=== PATIENT | female | born 1950 | race Asian ===

== ENCOUNTER 2024-07-05 13:55 | Outpatient (RCR) | payer MEDICARE, OTHER, SELFPAY | END 2024-07-30 23:59 | disposition home or self-care (01) | LOC: SCTC 13:55 | PROVIDERS: PCP Family Medicine; Referring Provider Family Medicine; Visit Provider Internal Medicine Hematology & Oncology | DX: C50.311 Malignant neoplasm of lower-inner quadrant of right female breast (principal); Z17.0 Estrogen receptor positive status [ER+]; Z17.21 Progesterone receptor positive status; Z17.32 Human epidermal growth factor receptor 2 negative status; Z92.21 Personal history of antineoplastic chemotherapy; Z92.3 Personal history of irradiation; M89.9 Disorder of bone, unspecified; L98.8 Other specified disorders of the skin and subcutaneous tissue | CPT/HCPCS: 99212; G0463 ==

== ENCOUNTER → 2024-07-25 | Outpatient (CLI) | payer MEDICARE, OTHER, SELFPAY ==
[2024-07-25 09:59] LABS: Alanine Aminotransferase 26 U/L (10-49); Albumin, Serum 4.8 gm/dL (3.4-4.8); Albumin/Globulin Ratio 1.7 (1.2-2.2); Alkaline Phosphatase 78 U/L (46-116); Anion Gap 7 (7-16); Aspartate Amino Transferase 32 U/L (0-34); BUN/Creatinine Ratio 19 Ratio (12-20); Bilirubin,Total 0.9 mg/dL (0.3-1.2); Blood Urea Nitrogen 17 mg/dL (9-23); Calcium 10.4 mg/dL (8.3-10.6); Calcium (Corrected) 10.4 mg/dL (8.5-10.1); Carbon Dioxide 29.7 mMol/L (20.0-31.0); Cardiac Risk Estimate 2.4 RATIO (3.7-5.6); Chloride 98 mMol/L (98-107); Cholesterol 175 mg/dL (132-200); Creatinine (Component) 0.9 mg/dL (0.6-1.3); Globulin 2.8 gm/dL (2.3-3.5); Glucose 128 mg/dL (74-106); HDL Cholesterol 72 mg/dL (40-60); LDL Cholesterol,Calculated 84 mg/dL (0-130); Osmolality,Calculated 273 (275-295); Potassium 4.2 mMol/L (3.4-5.1); Sodium 135 mMol/L (136-145); Total Protein 7.6 gm/dL (5.7-8.2); Triglycerides 97 mg/dL (30-150); eGFR > 60 See Note
[2024-07-25 10:15] LABS: Glucose Estimated Average 160 mg/dL (80-131); Hemoglobin A1C 7.2 % Hgb (4.8-6.0)
== END | disposition home or self-care (01) ==
LOC: COPL 08:03
PROVIDERS: PCP Family Medicine; Referring Provider Family Medicine; Visit Provider Family Medicine
DX: E78.2 Mixed hyperlipidemia (principal); E11.9 Type 2 diabetes mellitus without complications; I10 Essential (primary) hypertension
CPT/HCPCS: 36415; 80053; 80061; 83036

== ENCOUNTER → 2024-08-02 | Outpatient (CLI) | payer MEDICARE, OTHER, SELFPAY ==
--- NOTE | 2024-08-02 12:30 | XR_ITS ---
Examination: Breast ultrasound, unilateral, left complete Date and time of exam: August 02, 2024 1232 hours INDICATIONS: Outer breast pain several months, personal history right breast cancer lumpectomy 2021, left breast sonogram February 01, 2024 1:00 oval mass lobular margins 7 x 6 x 8 mm Technique: Real-time bush scale ultrasonographic imaging performed left breast including all 4 quadrants as well as nipple retroareolar and axillary region. Findings: 1:00 oval mass partially indistinct margins 10 x 9 x 11 mm 10:00 oval mass circumscribed 7 x 2 x 7 mm IMPRESSION: BI-RADS Category 4: Suspicious for malignancy Suspicious nodule 1:00 position left breast Biopsy is needed to exclude breast carcinoma, this mass is amenable to ultrasound-guided breast biopsy for diagnosis
== END | disposition home or self-care (01) ==
PROVIDERS: PCP Family Medicine; Referring Provider Family Medicine; Visit Provider Family Medicine
DX: R92.342 Mammographic extreme density, left breast (principal); N63.21 Unspecified lump in the left breast, upper outer quadrant
CPT/HCPCS: 76641

== ENCOUNTER → 2024-09-13 | Outpatient (CLI) | payer MEDICARE, OTHER, SELFPAY ==
[2024-09-12 12:37] LABS: Basophils % (Auto) 1 % (0-2.5); Eosinophils # (Auto) 0.1 Thou/mm3 (0.0-0.5); Eosinophils % (Auto) 2 % (0-10); Hematocrit 45.2 % (36.0-46.0); Hemoglobin 14.5 g/dL (12.0-16.0); Immature Granulocytes % (Auto) 0 % (0-0); Immature Granulocytes Auto 0.02 Thou/mm3 (0.00-0.00); Lymphocytes % (Auto) 21 % (10-50); Mean Corpuscular HGB Conc 32.1 g/dl (31.0-37.0); Mean Corpuscular Hemoglobin 29.4 pg (25.0-35.0); Mean Corpuscular Volume 92 fL (80-100); Monocytes # (Auto) 0.4 Thou/mm3 (0.0-0.8); Monocytes % (Auto) 9 % (0-12); Neutrophils % (Auto) 66 % (37-80); Nucleated Red Blood Cell % 0 /100 WBC (0); Partial Thromboplastin Time 28.5 Seconds (22.0-36.0); Platelet Count 266 Thou/mm3 (140-440); Prothrombin Time 10.7 Seconds (9.0-12.2); Red Blood Count 4.93 Miln/mm3 (4.00-5.20); White Blood Count 4.5 Thou/mm3 (3.6-11.0)
--- NOTE | 2024-09-13 10:30 | XR_ITS ---
Examinations: Ultrasound-guided percutaneous breast biopsy, left breast 1:00 nodule Left breast sonography limited INDICATIONS: Left breast sonogram August 02, 2024 BI-RADS 4 suspicious mass 1:00 position left breast. Exam date and time: September 13, 2024 1037 hours. Informed consent provided. Technique: A timeout was completed verifying correct patient, procedure, site, positioning, and special equipment if applicable Informed consent provided. The patient was placed in a supine position for the breast biopsy. Sonographic images of the breast were performed for localization of the suspicious nodule The patient's breast was prepped and draped in sterile fashion. Maximum sterile barrier technique, hand hygiene, ultrasound sterile technique 1% lidocaine was used to anesthetize the skin and breast adjacent to the suspicious nodule. Utilizing ultrasonographic guidance, 8 core biopsies were obtained of the suspicious nodule utilizing an 18-gauge BioPince needle. The specimens appears satisfactory. US guided breast biopsy marker placement. Estimated blood loss 3 cc. The patient tolerated the procedure well and there were no complications. Impression: Successful ultrasound-guided percutaneous breast biopsy, left breast 1:00 nodule. Ultrasound guided breast biopsy marker placement.
== END | disposition home or self-care (01) ==
LOC: SDIM 09:41 → SIRX 10:31
PROVIDERS: Radiology Diagnostic Radiology; PCP Family Medicine; Referring Provider Internal Medicine Hematology & Oncology; Visit Provider Internal Medicine Hematology & Oncology
DX: D24.2 Benign neoplasm of left breast (principal); N60.32 Fibrosclerosis of left breast; C50.311 Malignant neoplasm of lower-inner quadrant of right female breast; Z01.812 Encounter for preprocedural laboratory examination
CPT/HCPCS: 19083; 36415; 85025; 85610; 85730; A4648

== ENCOUNTER 2024-09-22 13:19 | Outpatient (RCR) | payer MEDICARE, OTHER, SELFPAY ==
--- NOTE | 2024-10-02 19:14 | CTCFLWUP_ITS ---
Patient: DELMIS ANTHONY V. : 1950 Page 10 of 11 FOLLOW UP NOTE DATE OF SERVICE: 09/22/2024 NAME: DELMIS ANTHONY V. 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 S/p ultrasound-guided biopsy. S/p neoadjuvant chemotherapy with TCH regimen (11/05/2020?02/26/2021) S/p lumpectomy and sentinel lymph node biopsy (04/05/2021). Residual ypT1b disease. S/p adjuvant radiation therapy 05/05/2021?07/09/2021) Treated with adjuvant Kadcyla (05/13/2021?02/10/2022). Adjuvant anastrozole started on 08/06/2021. Currently on Citracal and alendronate. DATE OF DIAGNOSIS: STAGE/TNM: TREATMENT HISTORY: Care?Plan Start?Date Cycle Day Intent TCH?1 09/24/2020 1 21 Curative?(primary) KADCYLA?adjuvant 05/13/2021 1 21 Curative?(adjuvant) HISTORY OF PRESENT ILLNESS: Delmis Anthony is a 74-year-old ENG speaking female with following history. 1982: Patient had bilateral salpingo-oophorectomy and hysterectomy for what appears to be fibroids. Following the surgery patient was treated with estrogens as well as progestins. She continued these drugs still she was 60 years of age. 01/13/2020: Bilateral screening mammograms which were compared to previous mammograms done on July 08, 2017. 02/06/2020: Right breast diagnostic mammogram? 02/06/2020: Right breast ultrasound? 08/07/2020: Right breast diagnostic mammogram? 08/07/2020: Right breast ultrasound? 09/12/2020: Ultrasound-guided biopsy of the right breast 5 o'clock position nodule? 10/09/2020: Bilateral breast MRI with and without contrast? 10/10/2020: Echocardiogram?LVEF 60 to 65%. 10/23/2020: Right axillary ultrasound? 10/26/2020: PET CT scan? 11/05/2020?02/26/2021: The patient was treated with 6 cycles of TCH chemotherapy. For last 2 cycles she did not receive carboplatin due to reaction. 11/26/2020: Right breast ultrasound? 04/05/2021: Status post lumpectomy and sentinel lymph node biopsy of the right breast? 05/13/2021?02/10/2022: The patient completed 14 cycles of adjuvant Kadcyla. 05/15/2021?07/09/2021: Ms. Anthony completed 6300 cGy of radiation therapy to right breast. August 19, 2021: Patient started on adjuvant anastrozole. 11/28/2021: Right breast ultrasound performed due to pain in the right breast as well as right axilla 12/11/2021: Bone scan? 12/11/2021: CT scan of the chest without contrast 12/17/2021: Right breast diagnostic mammogram done 04/23/2022: MRI of the right shoulder post intra-articular contrast? 10/01/2022: Bilateral breast ultrasounds done 10/16/2023: Right breast mammogram showed interval 8 mm focal asymmetry in the posterior right breast, 6.7 cm from the nipple. 12/04/2023: Bilateral breast ultrasound? 12/11/2023:Right breast ultrasound?BI-RADS Category 2: Benign findings. 05/17/2024: MRI of the brain with and without contrast? 09/13/2024 eft breast ultrasound-guided biopsy shows benign tissue and fibrosis negative for cancer 06/10/2024 bone scan showed positive bone scan suspicious for osseous mets. Recommended AP pelvis thoracic lumbar and cervical plain films 06/30/[address] scan negative. 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 amlodipine - 5 mg As directed 2. anastrozole - 1 mg 1 tab Daily 3. B Complex 100 - 1 tab Daily 4. Citracal - 200 mg 1 tab Daily 5. clotrimazole - 2 % 5 mg Daily 6. Fosamax - 70 mg 1 tab Weekly 7. Jardiance - 10 mg tab Daily 8. metformin - 500 mg Twice a Day 9. simvastatin - 25 mg Daily 10. Synthroid - 0.025 mg Daily Medications Last Reconciled by Jo Ann Rosenthal MA on 09/22/2024 ALLERGIES: pravastatin; lisinopril; Ciprofloxacin; sulfamethoxazole- trimethoprim; morphine (bulk) REVIEW OF SYSTEMS: A complete 14-point review of systems was performed and is negative except as noted in interval history. PHYSICAL EXAMINATION: VITAL SIGNS: Temperature?98.9, B/P?114/76, Oxygen?Saturation?96% Weight?110?lbs PAIN: 0 - No pain ECOG Performance Status: 0 - Asymptomatic and fully active GENERAL APPEARANCE: Appears well, in no apparent distress, appropriately interactive. HEENT: Normocephalic, no temporal wasting, normal conjunctiva, no scleral icterus, normal hearing, lips without lesions, neck normal range of motion. CARDIOVASCULAR: Not assessed. PULMONARY: Normal respiratory effort, no respiratory distress or use of accessory muscles, speaking in full sentences, no tachypnea. EXTREMITIES: No pedal edema or cyanosis. SKIN: Normal skin appearance. NEUROLOGIC: Alert and oriented x4. PSHYCHIATRIC: Appropriate affect, mood normal, behavior normal, intact thought and speech. 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 S/p ultrasound-guided biopsy. S/p neoadjuvant chemotherapy with TCH regimen (11/05/2020?02/26/2021) S/p lumpectomy and sentinel lymph node biopsy (04/05/2021). Residual ypT1b disease. S/p adjuvant radiation therapy 05/05/2021?07/09/2021) Treated with adjuvant Kadcyla (05/13/2021?02/10/2022). Adjuvant anastrozole started on 08/06/2021 MRI of the brain showed a 10 mm enhancing lesion in the right parietal bone as documented above. Reviewed PET CT scan and bone scan with the patient. Both scans do not show any hypermetabolic activity as has been similar findings in the order PET CT scan Extensively counseled patient that she likely has a skin lesion on her hip and she need to see the raw juice weigher. Continue to take her calcium and vitamin D and alendronate Discussed pathology and is negative ORDERS: CBC,CMP,CA15-3 ,[place] RETURN TO CLINIC: 1 months BILLING AND COMPLIANCE: I reviewed external records from providers outside my specialty as summarized above. I spent a total of 50 minutes on this patient?s care on the day of their visit excluding time spent related to any billed procedures. This time includes time spent with the patient as well as time spent documenting in the medical record, reviewing patients records and tests, obtaining history, placing orders, communicating with other healthcare professionals, counseling the patient, family or caregiver, and/or care coordination for the diagnoses above. Electronically Signed by: {Object.Sanct_ID*PnP.NameFL@M}, {Object.Sanct_ID*PnP.Suffix@U} D: {Object.Sanct_Date} T: {Object.Sanct_Time} CC: PCP: Roberto Feliz Referring: Roberto Feliz This document was completed utilizing speech recognition software. Grammatical errors, random word insertions, pronoun errors, and incomplete sentences are an occasional consequence of this system due to software limitations, ambient noise, and hardware issues. Any formal questions or concerns about the content, text or information contained within the body of this dictation should be directly addressed to the provider for clarification.
== END 2024-09-30 23:59 | disposition home or self-care (01) ==
LOC: SCTC 13:19
PROVIDERS: PCP Family Medicine; Referring Provider Family Medicine; Visit Provider Internal Medicine Hematology & Oncology
DX: C50.311 Malignant neoplasm of lower-inner quadrant of right female breast (principal); Z17.0 Estrogen receptor positive status [ER+]; Z17.21 Progesterone receptor positive status; Z17.32 Human epidermal growth factor receptor 2 negative status; Z92.21 Personal history of antineoplastic chemotherapy; Z90.11 Acquired absence of right breast and nipple; Z92.3 Personal history of irradiation; Z79.811 Long term (current) use of aromatase inhibitors
CPT/HCPCS: 99212; G0463

== ENCOUNTER → 2024-10-13 | Outpatient (CLI) | payer MEDICARE, OTHER, SELFPAY ==
[2024-10-14 09:19] LABS: Misc Send Out* See Sep Rpt
== END | disposition home or self-care (01) ==
LOC: SCTO 09:30
PROVIDERS: PCP Family Medicine; Referring Provider Internal Medicine Hematology & Oncology; Visit Provider Internal Medicine Hematology & Oncology
DX: C50.311 Malignant neoplasm of lower-inner quadrant of right female breast (principal)
CPT/HCPCS: 36415

== ENCOUNTER → 2024-12-28 | Outpatient (CLI) | payer MEDICARE, OTHER, SELFPAY ==
[2024-12-28 09:14] LABS: Misc Send Out* See Sep Rpt
== END | disposition home or self-care (01) ==
LOC: SCTO 08:45
PROVIDERS: PCP Family Medicine; Referring Provider Internal Medicine Hematology & Oncology; Visit Provider Internal Medicine Hematology & Oncology
DX: C50.311 Malignant neoplasm of lower-inner quadrant of right female breast (principal)

== ENCOUNTER → 2025-01-20 | Outpatient (CLI) | payer MEDICARE, OTHER, SELFPAY ==
[2025-01-20 10:08] LABS: Collection Type, Urine Clean Catch; Squamous Epithelial Cell,Urine 0 /hpf (0-5)
[2025-01-20 10:34] LABS: Basophils % (Auto) 1 % (0-2.5); Eosinophils # (Auto) 0.1 Thou/mm3 (0.0-0.5); Eosinophils % (Auto) 3 % (0-10); Hematocrit 44.6 % (36.0-46.0); Hemoglobin 14.6 g/dL (12.0-16.0); Immature Granulocytes % (Auto) 0 % (0-0); Immature Granulocytes Auto 0.02 Thou/mm3 (0.00-0.00); Lymphocytes % (Auto) 22 % (10-50); Mean Corpuscular HGB Conc 32.7 g/dl (31.0-37.0); Mean Corpuscular Hemoglobin 29.8 pg (25.0-35.0); Mean Corpuscular Volume 91 fL (80-100); Monocytes # (Auto) 0.5 Thou/mm3 (0.0-0.8); Monocytes % (Auto) 11 % (0-12); Neutrophils # (Auto) 2.8 Thou/mm3 (1.8-7.7); Neutrophils % (Auto) 64 % (37-80); Nucleated Red Blood Cell % 0 /100 WBC (0); Platelet Count 197 Thou/mm3 (140-440); RDW Standard Deviation 41.3 fL (36.4-46.3); White Blood Count 4.5 Thou/mm3 (3.6-11.0)
[2025-01-20 10:45] LABS: Glucose Estimated Average 169 mg/dL (80-131); Hemoglobin A1C 7.5 % Hgb (4.8-6.0)
[2025-01-20 11:03] LABS: Bilirubin,Urine Negative (Negative); Blood,Urine Negative (Negative); Clarity,Urine Clear (Clear/Hazy); Color,Urine Colorless (Lt Yel-Yel); Glucose, Urine 4+ (Negative); Ketones,Urine Negative (Negative); Leukocyte Esterase,Urine Negative (Negative); Nitrite,Urine Negative (Negative); PH,Urine 6.5 (5.0-7.0); Protein,Urine Negative (Neg - Trace); RBC,Urine < 1 /hpf (0-3); Specific Gravity,Urine 1.008 (1.001-1.035); Urobilinogen,Urine Negative mg/dL (0.0-1.0); WBC,Urine < 1 /hpf (0-5)
[2025-01-20 11:07] LABS: Alanine Aminotransferase 27 U/L (10-49); Albumin, Serum 4.7 gm/dL (3.4-4.8); Albumin/Globulin Ratio 1.7 (1.2-2.2); Alkaline Phosphatase 74 U/L (46-116); Anion Gap 7 (7-16); Aspartate Amino Transferase 25 U/L (0-34); BUN/Creatinine Ratio 21 Ratio (12-20); Bilirubin,Total 0.7 mg/dL (0.3-1.2); Blood Urea Nitrogen 17 mg/dL (9-23); Calcium 9.2 mg/dL (8.3-10.6); Calcium (Corrected) 9.2 mg/dL (8.5-10.1); Carbon Dioxide 28.7 mMol/L (20.0-31.0); Cardiac Risk Estimate 2.5 RATIO (3.7-5.6); Chloride 100 mMol/L (98-107); Cholesterol 174 mg/dL (132-200); Creatinine (Component) 0.8 mg/dL (0.6-1.3); Globulin 2.8 gm/dL (2.3-3.5); Glucose 136 mg/dL (74-106); HDL Cholesterol 71 mg/dL (40-60); LDL Cholesterol,Calculated 73 mg/dL (0-130); Osmolality,Calculated 275 (275-295); Potassium 4.3 mMol/L (3.4-5.1); Sodium 136 mMol/L (136-145); Thyroid Stimulating Hormone 2.68 uIU/mL (0.55-4.78); Total Protein 7.5 gm/dL (5.7-8.2); Triglycerides 150 mg/dL (30-150); eGFR > 60 See Note
[2025-01-20 11:14] LABS: Creatinine MALB Rnd Ur 17 mg/dL (30-125); Microalbumin, Random Urine < 3 mg/L (0-300)
== END | disposition home or self-care (01) ==
LOC: COPL 09:37
PROVIDERS: PCP Family Medicine; Referring Provider Family Medicine; Visit Provider Family Medicine
DX: Z00.00 Encounter for general adult medical examination without abnormal findings (principal); E11.9 Type 2 diabetes mellitus without complications; E78.2 Mixed hyperlipidemia; I10 Essential (primary) hypertension
CPT/HCPCS: 36415; 80053; 80061; 81001; 82043; 82570; 83036; 84443; 85025

== ENCOUNTER → 2025-02-24 | Outpatient (CLI) | payer MEDICARE, OTHER, SELFPAY ==
--- NOTE | 2025-02-24 08:15 | XR_ITS ---
Examination: Screening digital mammography, bilateral Computer aided detection 3-D breast Tomosynthesis, bilateral Date and time of exam: February 24, 2025 0757 hours Compared to mammograms dating to December 16, 2021 Indication: Screening Technique: Nonmagnified MLO, CC views of the breasts to been obtained, reconstructed from 3-D Tomosynthesis images. R2 computer aided detection program utilized for evaluation of suspicious masses and/or abnormal calcifications. 3-D Tomosynthesis images obtained. Findings: The breasts are heterogeneously dense, which may obscure small masses Breast biopsy marker 12:00 position left breast Benign calcifications Impression: BI-RADS Category 0: Incomplete: Need additional imaging evaluation Given the 1:00 nodule indistinct margins 10 x 9 x 11 mm on left breast sonogram August 02, 2024, recommend follow-up bilateral breast sonography
== END | disposition home or self-care (01) ==
LOC: CDIM 07:48
PROVIDERS: PCP Family Medicine; Referring Provider Internal Medicine Hematology & Oncology; Visit Provider Internal Medicine Hematology & Oncology
DX: Z12.31 Encounter for screening mammogram for malignant neoplasm of breast (principal); N63.21 Unspecified lump in the left breast, upper outer quadrant; C50.311 Malignant neoplasm of lower-inner quadrant of right female breast
CPT/HCPCS: 77063; 77067

== ENCOUNTER → 2025-03-24 | Outpatient (CLI) | payer MEDICARE, OTHER, SELFPAY ==
[2025-03-24 08:32] LABS: Basophils # (Auto) 0.0 Thou/mm3 (0.0-0.2); Basophils % (Auto) 1 % (0-2.5); Eosinophils # (Auto) 0.1 Thou/mm3 (0.0-0.5); Eosinophils % (Auto) 3 % (0-10); Hematocrit 44.6 % (36.0-46.0); Hemoglobin 15.0 g/dL (12.0-16.0); Immature Granulocytes Auto 0.02 Thou/mm3 (0.00-0.00); Lymphocytes # (Auto) 1.1 Thou/mm3 (1.0-4.8); Lymphocytes % (Auto) 25 % (10-50); Mean Corpuscular HGB Conc 33.6 g/dl (31.0-37.0); Mean Corpuscular Hemoglobin 30.3 pg (25.0-35.0); Mean Corpuscular Volume 90 fL (80-100); Monocytes # (Auto) 0.4 Thou/mm3 (0.0-0.8); Monocytes % (Auto) 9 % (0-12); Neutrophils # (Auto) 2.7 Thou/mm3 (1.8-7.7); Neutrophils % (Auto) 62 % (37-80); Nucleated Red Blood Cell # 0.00 Thou/mm3 (0.00-0.00); Nucleated Red Blood Cell % 0 /100 WBC (0); Platelet Count 227 Thou/mm3 (140-440); RDW Standard Deviation 40.9 fL (36.4-46.3); Red Blood Count 4.95 Miln/mm3 (4.00-5.20); White Blood Count 4.4 Thou/mm3 (3.6-11.0)
[2025-03-24 09:11] LABS: Alanine Aminotransferase 21 U/L (10-49); Albumin, Serum 4.6 gm/dL (3.4-4.8); Albumin/Globulin Ratio 1.7 (1.2-2.2); Alkaline Phosphatase 71 U/L (46-116); Anion Gap 10 (7-16); Aspartate Amino Transferase 26 U/L (0-34); BUN/Creatinine Ratio 18 Ratio (12-20); Bilirubin,Total 0.6 mg/dL (0.3-1.2); Blood Urea Nitrogen 16 mg/dL (9-23); Calcium 9.4 mg/dL (8.3-10.6); Calcium (Corrected) 9.4 mg/dL (8.5-10.1); Carbon Dioxide 29.4 mMol/L (20.0-31.0); Chloride 101 mMol/L (98-107); Creatinine (Component) 0.9 mg/dL (0.6-1.3); Globulin 2.7 gm/dL (2.3-3.5); Glucose 146 mg/dL (74-106); Osmolality,Calculated 283 (275-295); Potassium 4.2 mMol/L (3.4-5.1); Sodium 140 mMol/L (136-145); Total Protein 7.3 gm/dL (5.7-8.2); eGFR > 60 See Note
== END | disposition home or self-care (01) ==
LOC: COPL 07:51
PROVIDERS: PCP Family Medicine; Referring Provider Internal Medicine Hematology & Oncology; Visit Provider Internal Medicine Hematology & Oncology
DX: C50.311 Malignant neoplasm of lower-inner quadrant of right female breast (principal)
CPT/HCPCS: 36415; 80053; 85025

== ENCOUNTER 2025-03-29 13:50 | Outpatient (RCR) | payer MEDICARE, OTHER, SELFPAY ==
--- NOTE | 2025-04-09 22:33 | CTCFLWUP_ITS ---
Patient: DELMIS WHITTAKER V. : 1950 Page 11 of 12 FOLLOW UP NOTE DATE OF SERVICE: 03/29/2025 NAME: DELMIS WHITTAKER V. 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 S/p ultrasound-guided biopsy. S/p neoadjuvant chemotherapy with TCH regimen (11/05/2020?02/26/2021) S/p lumpectomy and sentinel lymph node biopsy (04/05/2021). Residual ypT1b disease. S/p adjuvant radiation therapy 05/05/2021?07/09/2021) Treated with adjuvant Kadcyla (05/13/2021?02/10/2022). Adjuvant anastrozole started on 08/06/2021. Currently on Citracal and alendronate. DATE OF DIAGNOSIS: 09/12/2020 STAGE/TNM: Stage IIa ER positive CO positive HER2 positive breast cancer TREATMENT HISTORY: Care?Plan Start?Date Cycle Day Intent TCH?1 09/24/2020 1 21 Curative?(primary) KADCYLA?adjuvant 05/13/2021 1 21 Curative?(adjuvant) HISTORY OF PRESENT ILLNESS: Delmis Whittaker is a 75-year-old ENG speaking female with following history. 1982: Patient had bilateral salpingo-oophorectomy and hysterectomy for what appears to be fibroids. Following the surgery patient was treated with estrogens as well as progestins. She continued these drugs still she was 60 years of age. 01/13/2020: Bilateral screening mammograms which were compared to previous mammograms done on July 08, 2017. 02/06/2020: Right breast diagnostic mammogram? 02/06/2020: Right breast ultrasound? 08/07/2020: Right breast diagnostic mammogram? 08/07/2020: Right breast ultrasound? 09/12/2020: Ultrasound-guided biopsy of the right breast 5 o'clock position nodule? 10/09/2020: Bilateral breast MRI with and without contrast? 10/10/2020: Echocardiogram?LVEF 60 to 65%. 10/23/2020: Right axillary ultrasound? 10/26/2020: PET CT scan? 11/05/2020?02/26/2021: The patient was treated with 6 cycles of TCH chemotherapy. For last 2 cycles she did not receive carboplatin due to reaction. 11/26/2020: Right breast ultrasound? 04/05/2021: Status post lumpectomy and sentinel lymph node biopsy of the right breast? 05/13/2021?02/10/2022: The patient completed 14 cycles of adjuvant Kadcyla. 05/15/2021?07/09/2021: Ms. Whittaker completed 6300 cGy of radiation therapy to right breast. August 19, 2021: Patient started on adjuvant anastrozole. 11/28/2021: Right breast ultrasound performed due to pain in the right breast as well as right axilla 12/11/2021: Bone scan? 12/11/2021: CT scan of the chest without contrast 12/17/2021: Right breast diagnostic mammogram done 04/23/2022: MRI of the right shoulder post intra-articular contrast? 10/01/2022: Bilateral breast ultrasounds done 10/16/2023: Right breast mammogram showed interval 8 mm focal asymmetry in the posterior right breast, 6.7 cm from the nipple. 12/04/2023: Bilateral breast ultrasound? 12/11/2023:Right breast ultrasound?BI-RADS Category 2: Benign findings. 05/17/2024: MRI of the brain with and without contrast? 09/13/2024 eft breast ultrasound-guided biopsy shows benign tissue and fibrosis negative for cancer 06/10/2024 bone scan showed positive bone scan suspicious for osseous mets. Recommended AP pelvis thoracic lumbar and cervical plain films 06/30/[address] scan negative. 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 amlodipine - 2 mg As directed 2. anastrozole - 1 mg 1 tab Daily 3. B Complex 100 - 1 tab Daily 4. Citracal - 200 mg 1 tab Daily 5. clotrimazole - 2 % 5 mg Daily 6. Fosamax - 70 mg 1 tab Weekly 7. Jardiance - 10 mg tab Daily 8. metformin - 500 mg Twice a Day 9. simvastatin - 25 mg Daily 10. Synthroid - 0.025 mg Daily Medications Last Reconciled by Jo Ann Brand MD on 03/29/2025 ALLERGIES: pravastatin; lisinopril; Ciprofloxacin; sulfamethoxazole- trimethoprim; morphine (bulk) REVIEW OF SYSTEMS: A complete 14-point review of systems was performed and is negative except as noted in interval history. PHYSICAL EXAMINATION: VITAL SIGNS: Temperature?97.4, B/P?136/78, Oxygen?Saturation?94% Weight?109?lbs PAIN: 0 - No pain ECOG Performance Status: 0 - Asymptomatic and fully active GENERAL APPEARANCE: Appears well, in no apparent distress, appropriately interactive. HEENT: Normocephalic, no temporal wasting, normal conjunctiva, no scleral icterus, normal hearing, lips without lesions, neck normal range of motion. CARDIOVASCULAR: Not assessed. PULMONARY: Normal respiratory effort, no respiratory distress or use of accessory muscles, speaking in full sentences, no tachypnea. EXTREMITIES: No pedal edema or cyanosis. SKIN: Normal skin appearance. NEUROLOGIC: Alert and oriented x4. PSHYCHIATRIC: Appropriate affect, mood normal, behavior normal, intact thought and speech. LABORATORY DATA: I have personally reviewed and interpreted each of the patient?s relevant lab tests, abnormal findings are below: Date 01/20/25 03/24/25 ??WHITE?BLOOD?COUNT?(Thou/mm3) 4.5 4.4 ??RED?BLOOD?COUNT?(Miln/mm3) 4.90 4.95 ??HEMOGLOBIN?(gm/dl) 14.6 15.0 ??HEMATOCRIT?(%) 44.6 44.6 ??PLATELET?COUNT?(Thou/mm3) 197 227 ??NEUTROPHILS?%,?AUTO?(%) 64 62 ??LYMPH?%,?AUTO?(%) 22 25 ??NEUTROPHILS,?AUTO?(Thou/mm3) 2.8 2.7 ??GLUCOSE,RANDOM?(mg/dL) 136?H 146?H ??BLOOD?UREA?NITROGEN?(mg/dL) 17 16 ??CREATININE?(mg/dL) 0.80 0.90 ??SODIUM?(mmol/L) 136 140 ??POTASSIUM?(mmol/L) 4.3 4.2 ??CHLORIDE?(mmol/L) 100 101 ??CrCl?(CandG)?(ml/min) 48.60 42.54 ??AST/SGOT?(Unit/L) 25 26 ??ALT/SGPT?(Unit/L) 27 21 ??ALKALINE?PHOSPHATASE?(Unit/L) 74 71 ??BILIRUBIN,?TOTAL?(mg/dL) 0.7 0.6 ??PROTEIN?TOTAL?(gm/dl) 7.5 7.3 ??ALBUMIN,?SERUM?(gm/dl) 4.7 4.6 ??GLOBULIN?(gm/dl) 2.8 2.7 ??ALBUMIN/GLOBULIN?RATIO 1.7 1.7 ??CALCIUM,?SERUM?(mg/dL) 9.2 9.4 ??CALCIUM?SERUM?(CORRECTED)?(mg/dL) 9.2 9.4 ASSESSMENT/PLAN: stage IIa (T1, N1, M0) ER positive, CO positive, HER-2/gilbert overexpressed 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 S/p ultrasound-guided biopsy. S/p neoadjuvant chemotherapy with TCH regimen (11/05/2020?02/26/2021) S/p lumpectomy and sentinel lymph node biopsy (04/05/2021). Residual ypT1b disease. S/p adjuvant radiation therapy 05/05/2021?07/09/2021) Treated with adjuvant Kadcyla (05/13/2021?02/10/2022). Adjuvant anastrozole started on 08/06/2021 MRI of the brain showed a 10 mm enhancing lesion in the right parietal bone as documented above. Reviewed PET CT scan and bone scan with the patient. Both scans do not show any hypermetabolic activity as has been similar findings in the order PET CT scan 09/13/2024 ultrasound followed by biopsy was done of the left breast and was negative Neli testing negative on 10/21/2024 Neli negative on 12/29/2024 03/31/2025 ultrasound of the breast showed bilateral lesions and recommendation was to obtain biopsy Patient very reluctant to do biopsy again at [facility] as last biopsy was negative Will refer to Dr. Meraz for evaluation Advised to continue taking her anastrozole ORDERS: Order # Description [id number] Bilateral + Breast Ultrasound [id number] Left + Breast Ultrasound [id number] Follow Up 3 Months Patient to come back and see me earliest if found to have cancer on the biopsy with Dr. Serrato RETURN TO CLINIC: I reviewed the diagnosis, prognosis, and recommended treatment/procedure options with the patient (and/or their legal operations representative), including the potential benefits, risks, side effects and alternative therapies. We also discussed the option of no treatment and the possibility of clinical trial participation, if applicable. All questions were addressed, and they demonstrated understanding. They provided informed consent to proceed with the proposed plan of care. BILLING AND COMPLIANCE: I reviewed external records from providers outside my specialty as summarized above. I spent a total of 50 minutes on this patient?s care on the day of their visit excluding time spent related to any billed procedures. This time includes time spent with the patient as well as time spent documenting in the medical record, reviewing patients records and tests, obtaining history, placing orders, communicating with other healthcare professionals, counseling the patient, family or caregiver, and/or care coordination for the diagnoses above. Electronically Signed by: {Object.Sanct_ID*[email or web address]@M}, {Object.Sanct_ID*[email or web address]@U} D: {Object.Sanct_Date} T: {Object.Sanct_Time} CC: PCP: Roberto Feliz Referring: Roberto Feliz This document was completed utilizing speech recognition software. Grammatical errors, random word insertions, pronoun errors, and incomplete sentences are an occasional consequence of this system due to software limitations, ambient noise, and hardware issues. Any formal questions or concerns about the content, text or information contained within the body of this dictation should be directly addressed to the provider for clarification.
== END 2025-03-30 23:59 | disposition home or self-care (01) ==
LOC: SCTC 13:50
PROVIDERS: PCP Family Medicine; Referring Provider Family Medicine; Visit Provider Internal Medicine Hematology & Oncology
DX: C50.311 Malignant neoplasm of lower-inner quadrant of right female breast (principal); Z17.0 Estrogen receptor positive status [ER+]; Z17.21 Progesterone receptor positive status; Z17.32 Human epidermal growth factor receptor 2 negative status; Z90.11 Acquired absence of right breast and nipple; Z92.3 Personal history of irradiation; Z92.21 Personal history of antineoplastic chemotherapy; Z79.811 Long term (current) use of aromatase inhibitors; N64.89 Other specified disorders of breast
CPT/HCPCS: 99212; G0463

== ENCOUNTER → 2025-03-31 | Outpatient (CLI) | payer MEDICARE, OTHER, SELFPAY ==
--- NOTE | 2025-03-31 14:00 | XR_ITS ---
Examination: Breast ultrasound complete, bilateral Date and time of exam: March 31, 2025 1350 hours INDICATIONS: 1:00 nodule 10 x 9 x 11 mm on left breast sonogram August 02, 2024, personal history right breast cancer with lumpectomy 2020 Technique: Real-time grayscale ultrasonographic imaging bilateral breasts, including all 4 quadrants as well as nipple retroareolar and axillary regions. Findings: Sonographic images right breast 3:00 nodule lobular margins 4 x 4 millimeter 3:00 nodule lobular margins 5 x 4 mm 5:00 likely scar formation 11 x 10 mm 7:00 nodule circumscribed 5 x 5 mm 11:00 nodule lobular margins 5 x 3 mm Sonographic images left breast 1:00 nodule indistinct margins, 11 x 8 x 8 mm 10:00 nodule circumscribed 6 x 7 mm IMPRESSION: BI-RADS Category 4: Suspicious for malignancy Recommend repeat biopsy of the suspicious nodule 1:00 position left breast, measuring 11 x 8 x 8 mm currently with indistinct margins Also continued 6 month follow-up right breast sonography strongly recommended to document stability of multiple solid nodules described above
== END | disposition home or self-care (01) ==
PROVIDERS: PCP Family Medicine; Referring Provider Internal Medicine Hematology & Oncology; Visit Provider Internal Medicine Hematology & Oncology
DX: N63.21 Unspecified lump in the left breast, upper outer quadrant (principal); N63.11 Unspecified lump in the right breast, upper outer quadrant; N63.22 Unspecified lump in the left breast, upper inner quadrant; N63.15 Unspecified lump in the right breast, overlapping quadrants; N63.13 Unspecified lump in the right breast, lower outer quadrant; C50.311 Malignant neoplasm of lower-inner quadrant of right female breast
CPT/HCPCS: 76641

== ENCOUNTER → 2025-06-23 | Outpatient (CLI) | payer MEDICARE, OTHER, SELFPAY ==
[2025-06-23 08:56] LABS: Glucose Estimated Average 169 mg/dL (80-131); Hemoglobin A1C 7.5 % Hgb (4.8-6.0)
[2025-06-23 09:15] LABS: Alanine Aminotransferase 30 U/L (10-49); Albumin, Serum 4.9 gm/dL (3.4-4.8); Albumin/Globulin Ratio 2.2 (1.2-2.2); Alkaline Phosphatase 66 U/L (46-116); Anion Gap 10 (7-16); Aspartate Amino Transferase 32 U/L (0-34); BUN/Creatinine Ratio 16 Ratio (12-20); Bilirubin,Total 1.0 mg/dL (0.3-1.2); Blood Urea Nitrogen 13 mg/dL (9-23); Calcium 9.7 mg/dL (8.3-10.6); Calcium (Corrected) 9.7 mg/dL (8.5-10.1); Carbon Dioxide 30.3 mMol/L (20.0-31.0); Cardiac Risk Estimate 3.0 RATIO (3.7-5.6); Chloride 102 mMol/L (98-107); Cholesterol 223 mg/dL (132-200); Creatinine (Component) 0.8 mg/dL (0.6-1.3); Globulin 2.2 gm/dL (2.3-3.5); Glucose 140 mg/dL (74-106); HDL Cholesterol 74 mg/dL (40-60); LDL Cholesterol,Calculated 129 mg/dL (0-130); Osmolality,Calculated 285 (275-295); Potassium 4.0 mMol/L (3.4-5.1); Sodium 142 mMol/L (136-145); Thyroid Stimulating Hormone 3.28 uIU/mL (0.55-4.78); Total Protein 7.1 gm/dL (5.7-8.2); Triglycerides 102 mg/dL (30-150); eGFR > 60 See Note
== END | disposition home or self-care (01) ==
LOC: COPL 07:37
PROVIDERS: PCP Family Medicine; Referring Provider Family Medicine; Visit Provider Family Medicine
DX: E11.69 Type 2 diabetes mellitus with other specified complication (principal); E78.2 Mixed hyperlipidemia; E03.9 Hypothyroidism, unspecified; I10 Essential (primary) hypertension
CPT/HCPCS: 36415; 80053; 80061; 83036; 84443

== ENCOUNTER 2025-06-29 13:08 | Outpatient (RCR) | payer MEDICARE, OTHER, SELFPAY ==
--- NOTE | 2025-07-17 06:27 | CTCFLWUP_ITS ---
Patient: DELMIS WHITTAKER V. : 1950 Page 10 of 12 FOLLOW UP NOTE DATE OF SERVICE: 06/29/2025 NAME: DELMIS WHITTAKER V. ACCOUNT: [id number] : 1950 AGE: 75 INTERVAL HISTORY: Patient is here for follow-up on the biopsy results. Patient was recommended to do the biopsy which was completed by breast surgeon Dr. Serrato antibodies fortunately negative. Will continue on anastrozole and routine follow-up. ONCOLOGY HISTORY:?[facility] Hx? 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 S/p ultrasound-guided biopsy. S/p neoadjuvant chemotherapy with TCH regimen (11/05/2020?02/26/2021) S/p lumpectomy and sentinel lymph node biopsy (04/05/2021). Residual ypT1b disease. S/p adjuvant radiation therapy 05/05/2021?07/09/2021) Treated with adjuvant Kadcyla (05/13/2021?02/10/2022). Adjuvant anastrozole started on 08/06/2021. Currently on Citracal and alendronate. DATE OF DIAGNOSIS: 09/12/2020 STAGE/TNM: Stage IIa ER positive OH positive HER2 positive breast cancer TREATMENT HISTORY: Care?Plan Start?Date Cycle Day Intent TCH?1 09/24/2020 1 21 Curative?(primary) KADCYLA?adjuvant 05/13/2021 1 21 Curative?(adjuvant) HISTORY OF PRESENT ILLNESS: Delmis Whittaker is a 75-year-old ENG speaking female with following history. 1982: Patient had bilateral salpingo-oophorectomy and hysterectomy for what appears to be fibroids. Following the surgery patient was treated with estrogens as well as progestins. She continued these drugs still she was 60 years of age. 01/13/2020: Bilateral screening mammograms which were compared to previous mammograms done on July 08, 2017. 02/06/2020: Right breast diagnostic mammogram? 02/06/2020: Right breast ultrasound? 08/07/2020: Right breast diagnostic mammogram? 08/07/2020: Right breast ultrasound? 09/12/2020: Ultrasound-guided biopsy of the right breast 5 o'clock position nodule? 10/09/2020: Bilateral breast MRI with and without contrast? 10/10/2020: Echocardiogram?LVEF 60 to 65%. 10/23/2020: Right axillary ultrasound? 10/26/2020: PET CT scan? 11/05/2020?02/26/2021: The patient was treated with 6 cycles of TCH chemotherapy. For last 2 cycles she did not receive carboplatin due to reaction. 11/26/2020: Right breast ultrasound? 04/05/2021: Status post lumpectomy and sentinel lymph node biopsy of the right breast? 05/13/2021?02/10/2022: The patient completed 14 cycles of adjuvant Kadcyla. 05/15/2021?07/09/2021: Ms. Whittaker completed 6300 cGy of radiation therapy to right breast. August 19, 2021: Patient started on adjuvant anastrozole. 11/28/2021: Right breast ultrasound performed due to pain in the right breast as well as right axilla 12/11/2021: Bone scan? 12/11/2021: CT scan of the chest without contrast 12/17/2021: Right breast diagnostic mammogram done 04/23/2022: MRI of the right shoulder post intra-articular contrast? 10/01/2022: Bilateral breast ultrasounds done 10/16/2023: Right breast mammogram showed interval 8 mm focal asymmetry in the posterior right breast, 6.7 cm from the nipple. 12/04/2023: Bilateral breast ultrasound? 12/11/2023:Right breast ultrasound?BI-RADS Category 2: Benign findings. 05/17/2024: MRI of the brain with and without contrast? 09/13/2024 eft breast ultrasound-guided biopsy shows benign tissue and fibrosis negative for cancer 06/10/2024 bone scan showed positive bone scan suspicious for osseous mets. Recommended AP pelvis thoracic lumbar and cervical plain films 06/30/[address] scan negative. Focal sclerotic lesions without any hypermetabolism OTHER MEDICAL HISTORY/CONDITIONS: FAMILY HISTORY: ?Clone Family Hx? 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 amlodipine - 2 mg As directed 2. anastrozole - 1 mg 1 tab Daily 3. B Complex 100 - 1 tab Daily 4. Citracal - 200 mg 1 tab Daily 5. clotrimazole - 2 % 5 mg Daily 6. Fosamax - 70 mg 1 tab Weekly 7. Jardiance - 10 mg tab Daily 8. metformin - 500 mg Twice a Day 9. simvastatin - 25 mg Daily 10. Synthroid - 0.025 mg Daily?Palabra Meds? Medications Last Reconciled by Jo Ann Brand MD on 06/29/2025 ALLERGIES: pravastatin; lisinopril; Ciprofloxacin; sulfamethoxazole- trimethoprim; morphine (bulk) REVIEW OF SYSTEMS: A complete 14-point review of systems was performed and is negative except as noted in interval history. PHYSICAL EXAMINATION:?CloneBlock PE? VITAL SIGNS: Temperature?97.6, B/P?130/76, Oxygen?Saturation?98% Weight?105?lbs PAIN: 0 - No pain ECOG Performance Status: 0 - Asymptomatic and fully active GENERAL APPEARANCE: Appears well, in no apparent distress, appropriately interactive. HEENT: Normocephalic, no temporal wasting, normal conjunctiva, no scleral icterus, normal hearing, lips without lesions, neck normal range of motion. CARDIOVASCULAR: Not assessed. PULMONARY: Normal respiratory effort, no respiratory distress or use of accessory muscles, speaking in full sentences, no tachypnea. EXTREMITIES: No pedal edema or cyanosis. SKIN: Normal skin appearance. NEUROLOGIC: Alert and oriented x4. PSHYCHIATRIC: Appropriate affect, mood normal, behavior normal, intact thought and speech. LABORATORY DATA: I have personally reviewed and interpreted each of the patient?s relevant lab tests, abnormal findings are below: Date 01/20/25 03/24/25 06/23/25 ??WHITE?BLOOD?COUNT?(Thou/mm3) 4.5 4.4 ? ??RED?BLOOD?COUNT?(Miln/mm3) 4.90 4.95 ? ??HEMOGLOBIN?(gm/dl) 14.6 15.0 ? ??HEMATOCRIT?(%) 44.6 44.6 ? ??PLATELET?COUNT?(Thou/mm3) 197 227 ? ??NEUTROPHILS?%,?AUTO?(%) 64 62 ? ??LYMPH?%,?AUTO?(%) 22 25 ? ??NEUTROPHILS,?AUTO?(Thou/mm3) 2.8 2.7 ? ??GLUCOSE,RANDOM?(mg/dL) ? 146?H 140?H ??BLOOD?UREA?NITROGEN?(mg/dL) ? 16 13 ??CREATININE?(mg/dL) ? 0.90 0.80 ??SODIUM?(mmol/L) ? 140 142 ??POTASSIUM?(mmol/L) ? 4.2 4.0 ??CHLORIDE?(mmol/L) ? 101 102 ??CrCl?(CandG)?(ml/min) ? 42.54 47.42 ??AST/SGOT?(Unit/L) ? 26 32 ??ALT/SGPT?(Unit/L) ? 21 30 ??ALKALINE?PHOSPHATASE?(Unit/L) ? 71 66 ??BILIRUBIN,?TOTAL?(mg/dL) ? 0.6 1.0 ??PROTEIN?TOTAL?(gm/dl) ? 7.3 7.1 ??ALBUMIN,?SERUM?(gm/dl) ? 4.6 4.9?H ??GLOBULIN?(gm/dl) ? 2.7 2.2?L ??ALBUMIN/GLOBULIN?RATIO ? 1.7 2.2 ??CALCIUM,?SERUM?(mg/dL) ? 9.4 9.7 ??CALCIUM?SERUM?(CORRECTED)?(mg/dL) ? 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 S/p ultrasound-guided biopsy. S/p neoadjuvant chemotherapy with TCH regimen (11/05/2020?02/26/2021) S/p lumpectomy and sentinel lymph node biopsy (04/05/2021). Residual ypT1b disease. S/p adjuvant radiation therapy 05/05/2021?07/09/2021) Treated with adjuvant Kadcyla (05/13/2021?02/10/2022). Adjuvant anastrozole started on 08/06/2021 MRI of the brain showed a 10 mm enhancing lesion in the right parietal bone as documented above. Reviewed PET CT scan and bone scan with the patient. Both scans do not show any hypermetabolic activity as has been similar findings in the order PET CT scan 09/13/2024 ultrasound followed by biopsy was done of the left breast and was negative Neli testing negative on 10/21/2024 Neli negative on 12/29/2024 03/31/2025 ultrasound of the breast showed bilateral lesions and recommendation was to obtain biopsy It was biopsied outside by Dr. Serrato and all is negative advised to continue taking her anastrozole ORDERS: Order # Description [id number] Comprehensive Metabolic Panel - 12 + CBC with Auto Diff + CA 15-3 + MD Follow Up 6 Month RETURN TO CLINIC: I reviewed the diagnosis, prognosis, and recommended treatment/procedure options with the patient (and/or their legal associate sales representative), including the potential benefits, risks, side effects and alternative therapies. We also discussed the option of no treatment and the possibility of clinical trial participation, if applicable. All questions were addressed, and they demonstrated understanding. They provided informed consent to proceed with the proposed plan of care. BILLING AND COMPLIANCE: I reviewed external records from providers outside my specialty as summarized above. I spent a total of 50 minutes on this patient?s care on the day of their visit excluding time spent related to any billed procedures. This time includes time spent with the patient as well as time spent documenting in the medical record, reviewing patients records and tests, obtaining history, placing orders, communicating with other healthcare professionals, counseling the patient, family or caregiver, and/or care coordination for the diagnoses above. Electronically Signed by: Akil Barr MD T: 6:24 AM CC: PCP: Roberto Feliz Referring: Roberto Feliz This document was completed utilizing speech recognition software. Grammatical errors, random word insertions, pronoun errors, and incomplete sentences are an occasional consequence of this system due to software limitations, ambient noise, and hardware issues. Any formal questions or concerns about the content, text or information contained within the body of this dictation should be directly addressed to the provider for clarification.
== END 2025-06-30 23:59 | disposition home or self-care (01) ==
LOC: SCTC 13:08
PROVIDERS: PCP Family Medicine; Referring Provider Family Medicine; Visit Provider Internal Medicine Hematology & Oncology
DX: C50.311 Malignant neoplasm of lower-inner quadrant of right female breast (principal); Z17.0 Estrogen receptor positive status [ER+]; Z17.21 Progesterone receptor positive status; Z17.31 Human epidermal growth factor receptor 2 positive status; Z92.21 Personal history of antineoplastic chemotherapy; Z90.11 Acquired absence of right breast and nipple; Z79.811 Long term (current) use of aromatase inhibitors
CPT/HCPCS: 99212; G0463

== ENCOUNTER → 2025-08-03 | Outpatient (CLI) | payer MEDICARE, OTHER, SELFPAY ==
--- NOTE | 2025-08-03 10:00 | XR_ITS ---
Examination: Breast ultrasound, unilateral, left Date and time of exam: August 03, 2025, 0955 hours INDICATIONS: 1:00 nodule left breast 11 x 8 x 8 mm indistinct margins on ultrasound March 31, 2025 Technique: Real-time bush scale ultrasonographic imaging performed left breast including all 4 quadrants as well as nipple retroareolar and axillary region. Findings: 1:00 nodule with breast biopsy marker, lobular margins 12 x 6 x 9 mm 10:00 nodule circumscribed 8 x 9 mm IMPRESSION: BI-RADS Category 3: Probably benign findings Recommend 1 additional 6-month ultrasonographic follow-up
--- NOTE | 2025-08-03 10:30 | XR_ITS ---
Examination: Diagnostic digital mammography, unilateral, left Computer aided detection 3-D breast Tomosynthesis, unilateral Date and time of exam: August 03, 2025, 1015 hours INDICATIONS: 1:00 nodule indistinct margins 10 x 9 x 11 mm on left breast sonogram August 02, 2024 Technique: Nonmagnified MLO, CC views of the left breast have been obtained, reconstructed from 3-D Tomosynthesis images. R2 computer aided detection program utilized for evaluation of suspicious masses and/or abnormal calcifications. 3-D Tomosynthesis images obtained. Findings: The breast is heterogeneously dense, which may obscure small masses Breast biopsy marker 12 o'clock position left breast 8 mm focal asymmetry outer left breast cc view, 6 cm from the nipple which may be lower left breast on the MLO view Impression: BI-RADS category 0: Incomplete: Need additional imaging evaluation Recommend follow-up spot tomographic views outer lower left breast to assess focal asymmetry described above
== END | disposition home or self-care (01) ==
LOC: CDIM 09:39
PROVIDERS: PCP Family Medicine; Referring Provider Surgery; Visit Provider Surgery
DX: R92.8 Other abnormal and inconclusive findings on diagnostic imaging of breast (principal); N64.89 Other specified disorders of breast
CPT/HCPCS: 76641; 77061; 77065; G0279